=== PATIENT | male | born 1960 | race Caucasian/White ===

== ENCOUNTER 2018-11-18 03:08 | Inpatient (IN) | payer MEDICAID, OTHER ==
[2018-11-18 04:03] LABS: ADD MAN DIFF? NO
[2018-11-18] MEDS: LIDOCAINE/MYLANTA 40 ML BTL PO (04:04)
[2018-11-18] MEDS: FAMOTIDINE 20 MG TAB PO (04:04)
[2018-11-18 04:05] LABS: BASOPHILS % 0.2 % (0.0-2.0); EOSINOPHILS % 0.4 % (0.0-7.0); HEMATOCRIT 41.4 % (42.0-52.0); HEMOGLOBIN 14.4 g/dl (14.0-18.0); LYMPHOCYTES # 0.8 10^3/ul (0.8-2.9); LYMPHOCYTES % 9.1 % (15.0-51.0); MEAN CORPUSCULAR HEMOGLOBIN 30.8 pg (29.0-33.0); MEAN CORPUSCULAR HGB CONC 34.8 g/dl (32.0-37.0); MEAN CORPUSCULAR VOLUME 88.7 fl (82.0-101.0); MEAN PLATELET VOLUME 10.3 fl (7.4-10.4); MONOCYTE # 0.6 10^3/ul (0.3-0.9); MONOCYTES % 7.1 % (0.0-11.0); NEUTROPHILS % 82.7 % (39.0-77.0); PLATELET COUNT 249 10^3/UL (140-415); RED BLOOD COUNT 4.67 10^6/ul (4.70-6.10); RED CELL DISTRIBUTION WIDTH 13.9 % (11.5-14.5)
[2018-11-18 04:05] LABS: WHITE BLOOD COUNT 8.5 10^3/ul (4.8-10.8)
[2018-11-18 04:22] LABS: ALANINE AMINOTRANSFERASE 58 IU/L (13-69); ALBUMIN 4.6 g/dl (3.3-4.9); ALBUMIN/GLOBULIN RATIO 1.12; ALKALINE PHOSPHATASE 226 IU/L (42-121); ANION GAP 15 (5-13); ASPARTATE AMINO TRANSFERASE 97 IU/L (15-46); BILIRUBIN,INDIRECT 0.6 mg/dl (0-1.1); BILIRUBIN,TOTAL 0.7 mg/dl (0.2-1.3); BLOOD UREA NITROGEN 65 mg/dl (7-20); CALCIUM 9.4 mg/dl (8.4-10.2); CARBON DIOXIDE 34 mmol/L (21-31); CHLORIDE 89 mmol/L (97-110); CREATININE 8.85 mg/dl (0.61-1.24); Estimated GFR 6 mL/min (>60); GLUCOSE 307 mg/dl (70-220); LIPASE 377 U/L (23-300); POTASSIUM 5.4 mmol/L (3.5-5.1); SODIUM 138 mmol/L (135-144); TOTAL PROTEIN 8.7 g/dl (6.1-8.1)
[2018-11-18] MEDS: ONDANSETRON 4 MG INJ IV (04:32)
[2018-11-18 04:33] LABS: TROPONIN-I 0.027 ng/ml (0.000-0.120)
[2018-11-18] MEDS: morphine 2 MG INJ IV (04:33)
[2018-11-18] MEDS ORDERED: BISACODYL (EC) 5 MG TAB PO (05:00)
[2018-11-18] MEDS ORDERED: hydrALAzine 20 MG INJ IV ×2 (05:00→17:00)
[2018-11-18] MEDS ORDERED: ACETAMINOPHEN 325 MG TAB PO ×2 (05:00)
[2018-11-18] MEDS ORDERED: NACL 0.9% 3 ML SYG IV (05:00)
[2018-11-18] MEDS ORDERED: morphine 2 MG INJ IV (05:00)
[2018-11-18] MEDS ORDERED: DOCUSATE SODIUM 100 MG CAP PO (05:00)
[2018-11-18] MEDS ORDERED: ONDANSETRON 4 MG INJ IV ×2 (05:00)
[2018-11-18] MEDS: PIPER-TAZO 2.25 GM (PMX) 50 ML IVPB ×3 (05:20→22:28)
[2018-11-18] MEDS: SOD CHLORIDE 0.9% 1,000 ML IV (05:20)
[2018-11-18] MEDS ORDERED: DEXTROSE 50% 50 ML SYRINGE IV ×2 (05:30)
[2018-11-18] MEDS ORDERED: GLUCOSE GEL 15 GRAM TUBE BUCCAL (05:30)
[2018-11-18] MEDS ORDERED: GLUCAGON 1 MG INJ IM (05:30)
[2018-11-18] MEDS ORDERED: GLUCOSE GEL 15 GRAM TUBE PO ×2 (05:30)
[2018-11-18 05:44] LABS: INR 0.89; PROTIME 12.2 Sec (11.9-14.9)
[2018-11-18] MEDS: INSULIN ASPART [NOVOLOG] 3 ML PEN SC ×5 (05:55→21:00)
[2018-11-18] MEDS ORDERED: PIPER-TAZO 3.375 GM IV (PMX) 100 ML IVPB (06:00)
[2018-11-18] MEDS: ASPIRIN (EC) 81 MG TAB PO (09:23)
[2018-11-18] MEDS: FOLIC ACID 1 MG TAB PO (09:23)
[2018-11-18] MEDS: METOPROLOL 25 MG TAB PO (09:24)
[2018-11-18] MEDS: ISOSORBIDE DINITRATE 20 MG TAB PO ×3 (09:24→22:27)
[2018-11-18] MEDS: CLOPIDOGREL 75 MG TAB PO (15:22)
[2018-11-18 16:05] LABS: HAAIG REFLEX REFLEX FILED
[2018-11-18 19:43] LABS: HEPATITIS B CORE ANTIBODY NEGATIVE (NEGATIVE); HEPATITIS B SURFACE ANTIGEN NEGATIVE (NEGATIVE); HEPATITIS C VIRAL ANTIBODY NEGATIVE (NEGATIVE)
[2018-11-18] MEDS: METOPROLOL 50 MG TAB PO (22:26)
[2018-11-18] MEDS: ATORVASTATIN 20 MG TAB PO (22:27)
[2018-11-19] MEDS: INSULIN ASPART [NOVOLOG] 3 ML PEN SC ×6 (01:00→20:21)
[2018-11-19] MEDS ORDERED: ACCU-CHEK XX (02:00)
[2018-11-19] MEDS: PIPER-TAZO 2.25 GM (PMX) 50 ML IVPB ×3 (05:23→21:52)
[2018-11-19] MEDS: SOD CHLORIDE 0.9% 1,000 ML IV (05:26)
[2018-11-19 06:07] LABS: ADD MAN DIFF? NO
[2018-11-19 06:42] LABS: PHOSPHORUS 5.9 mg/dl (2.5-4.9)
[2018-11-19 06:42] LABS: MAGNESIUM 2.3 mg/dl (1.7-2.5)
[2018-11-19 06:53] LABS: WHITE BLOOD COUNT 5.5 10^3/ul (4.8-10.8)
[2018-11-19 06:53] LABS: BASOPHILS % 0.7 % (0.0-2.0); EOSINOPHILS # 0.3 10^3/ul (0.0-0.5); EOSINOPHILS % 4.7 % (0.0-7.0); HEMOGLOBIN 14.6 g/dl (14.0-18.0); LYMPHOCYTES # 1.1 10^3/ul (0.8-2.9); LYMPHOCYTES % 19.9 % (15.0-51.0); MEAN CORPUSCULAR HEMOGLOBIN 30.4 pg (29.0-33.0); MEAN CORPUSCULAR HGB CONC 33.2 g/dl (32.0-37.0); MEAN CORPUSCULAR VOLUME 91.7 fl (82.0-101.0); MEAN PLATELET VOLUME 10.5 fl (7.4-10.4); MONOCYTE # 0.5 10^3/ul (0.3-0.9); MONOCYTES % 9.6 % (0.0-11.0); NEUTROPHIL # 3.6 10^3/ul (1.6-7.5); NEUTROPHILS % 64.7 % (39.0-77.0); PLATELET COUNT 210 10^3/UL (140-415); RED CELL DISTRIBUTION WIDTH 14.5 % (11.5-14.5)
[2018-11-19 07:01] LABS: ALANINE AMINOTRANSFERASE 144 IU/L (13-69); ALBUMIN 4.1 g/dl (3.3-4.9); ALBUMIN/GLOBULIN RATIO 1.07; ALKALINE PHOSPHATASE 236 IU/L (42-121); ANION GAP 14 (5-13); ASPARTATE AMINO TRANSFERASE 150 IU/L (15-46); BILIRUBIN,INDIRECT 0.9 mg/dl (0-1.1); BILIRUBIN,TOTAL 1.9 mg/dl (0.2-1.3); BLOOD UREA NITROGEN 36 mg/dl (7-20); CALCIUM 9.6 mg/dl (8.4-10.2); CARBON DIOXIDE 30 mmol/L (21-31); CHLORIDE 98 mmol/L (97-110); Estimated GFR 7 mL/min (>60); GLUCOSE 120 mg/dl (70-220); SODIUM 142 mmol/L (135-144); TOTAL PROTEIN 7.9 g/dl (6.1-8.1)
[2018-11-19] MEDS: FOLIC ACID 1 MG TAB PO (09:24)
[2018-11-19] MEDS: CLOPIDOGREL 75 MG TAB PO (09:24)
[2018-11-19] MEDS: ASPIRIN (EC) 81 MG TAB PO (09:25)
[2018-11-19] MEDS: ISOSORBIDE DINITRATE 20 MG TAB PO ×3 (09:25→20:09)
[2018-11-19] MEDS: METOPROLOL 50 MG TAB PO ×2 (09:26→20:10)
[2018-11-19 12:09] LABS: CHOL/HDL RATIO 1.6 RATIO; HDL CHOLESTEROL 59 mg/dl (30-78); LDL CHOLESTEROL,CALCULATED 30 mg/dl; TRIGLYCERIDES 47 mg/dl (0-149)
[2018-11-19 12:09] LABS: CHOLESTEROL 98 mg/dl (100-200)
[2018-11-19 12:10] LABS: HEMOGLOBIN A1C 7.9 % (0-5.9)
[2018-11-19] MEDS: SUCRALFATE (100 MG/ML) 10ML CUP GTB ×2 (17:40→20:08)
[2018-11-19] MEDS: SEVELAMER CARBONATE 800 MG TABLET PO (17:40)
[2018-11-19] MEDS: PANTOPRAZOLE (EC) 40 MG TAB PO (17:40)
[2018-11-20] MEDS: hydrALAzine 20 MG INJ IV (00:45)
[2018-11-20] MEDS: INSULIN ASPART [NOVOLOG] 3 ML PEN SC ×4 (01:00→12:36)
[2018-11-20] MEDS: PIPER-TAZO 2.25 GM (PMX) 50 ML IVPB ×2 (05:46→13:59)
[2018-11-20] MEDS: PANTOPRAZOLE (EC) 40 MG TAB PO (05:56)
[2018-11-20 05:58] LABS: ADD MAN DIFF? NO
[2018-11-20 06:04] LABS: WHITE BLOOD COUNT 6.9 10^3/ul (4.8-10.8)
[2018-11-20 06:04] LABS: BASOPHIL # 0.1 10^3/ul (0.0-0.1); BASOPHILS % 1.3 % (0.0-2.0); EOSINOPHILS # 0.5 10^3/ul (0.0-0.5); EOSINOPHILS % 7.1 % (0.0-7.0); HEMOGLOBIN 14.3 g/dl (14.0-18.0); LYMPHOCYTES # 1.4 10^3/ul (0.8-2.9); LYMPHOCYTES % 19.5 % (15.0-51.0); MEAN CORPUSCULAR HEMOGLOBIN 30.1 pg (29.0-33.0); MEAN CORPUSCULAR HGB CONC 32.5 g/dl (32.0-37.0); MEAN CORPUSCULAR VOLUME 92.6 fl (82.0-101.0); MEAN PLATELET VOLUME 10.4 fl (7.4-10.4); MONOCYTE # 0.6 10^3/ul (0.3-0.9); MONOCYTES % 9.1 % (0.0-11.0); NEUTROPHIL # 4.3 10^3/ul (1.6-7.5); NEUTROPHILS % 62.6 % (39.0-77.0); PLATELET COUNT 232 10^3/UL (140-415); RED BLOOD COUNT 4.75 10^6/ul (4.70-6.10); RED CELL DISTRIBUTION WIDTH 14.4 % (11.5-14.5)
[2018-11-20 06:35] LABS: ALANINE AMINOTRANSFERASE 107 IU/L (13-69); ALBUMIN 3.8 g/dl (3.3-4.9); ALBUMIN/GLOBULIN RATIO 1.05; ALKALINE PHOSPHATASE 244 IU/L (42-121); ANION GAP 17 (5-13); ASPARTATE AMINO TRANSFERASE 91 IU/L (15-46); BILIRUBIN,INDIRECT 0.7 mg/dl (0-1.1); BLOOD UREA NITROGEN 48 mg/dl (7-20); CALCIUM 9.2 mg/dl (8.4-10.2); CARBON DIOXIDE 25 mmol/L (21-31); CHLORIDE 96 mmol/L (97-110); CREATININE 10.08 mg/dl (0.61-1.24); Estimated GFR 5 mL/min (>60); GLUCOSE 87 mg/dl (70-220); POTASSIUM 4.7 mmol/L (3.5-5.1); SODIUM 138 mmol/L (135-144); TOTAL PROTEIN 7.4 g/dl (6.1-8.1)
[2018-11-20 06:52] LABS: MAGNESIUM 2.3 mg/dl (1.7-2.5)
[2018-11-20 06:52] LABS: PHOSPHORUS 6.8 mg/dl (2.5-4.9)
[2018-11-20 07:45] LABS: HEPATITIS B SURFACE ANTIGEN NEGATIVE (NEGATIVE)
[2018-11-20 08:03] LABS: HEPATITIS C VIRAL ANTIBODY NEGATIVE (NEGATIVE)
[2018-11-20] MEDS: ISOSORBIDE DINITRATE 20 MG TAB PO ×2 (08:20→12:47)
[2018-11-20] MEDS: FOLIC ACID 1 MG TAB PO (08:20)
[2018-11-20] MEDS: ASPIRIN (EC) 81 MG TAB PO (08:20)
[2018-11-20] MEDS: SEVELAMER CARBONATE 800 MG TABLET PO ×2 (08:20→12:48)
[2018-11-20] MEDS: CLOPIDOGREL 75 MG TAB PO (08:21)
[2018-11-20] MEDS: METOPROLOL 50 MG TAB PO (08:21)
[2018-11-20] MEDS: SUCRALFATE (100 MG/ML) 10ML CUP GTB ×2 (08:22→12:47)
[2018-11-22 11:18] LABS: MITOCHONDRIAL TB NEGATIVE (NEGATIVE); SMOOTH MUSCLE AB SCREEN NEGATIVE (NEGATIVE)
[2018-11-22 13:42] LABS: ANA SCREEN NEGATIVE (NEGATIVE)
== END 2018-11-20 17:35 | disposition home or self-care (01) | DRG 444 ==
LOC: MS1 11-19 23:45 → E/R 03:08 → MS1 11-19 23:39 → 6WM 04:48
DX: K80.20 Calculus of gallbladder without cholecystitis without obstruction (principal); N18.6 End stage renal disease; I13.2 Hypertensive heart and chronic kidney disease with heart failure and with stage 5 chronic kidney disease, or end stage renal disease; I50.22 Chronic systolic (congestive) heart failure; E11.22 Type 2 diabetes mellitus with diabetic chronic kidney disease; E11.319 Type 2 diabetes mellitus with unspecified diabetic retinopathy without macular edema; E78.5 Hyperlipidemia, unspecified; E87.5 Hyperkalemia; I25.10 Atherosclerotic heart disease of native coronary artery without angina pectoris; I25.2 Old myocardial infarction; Z86.73 Personal history of transient ischemic attack (TIA), and cerebral infarction without residual deficits; Z99.2 Dependence on renal dialysis; Z79.82 Long term (current) use of aspirin; Z95.5 Presence of coronary angioplasty implant and graft
CPT/HCPCS: 36415; 71045; 74181; 76705; 78226; 80053; 80061; 82652; 82962; 83036; 83690; 83735; 84100; 84484; 85025; 85610; 85730; 86038; 86255; 86704; 86709; 86803; 87340; 90935; 93005; 93306; 96374; 96375; 99285-25